=== PATIENT | male | born 1990 | race African-American/Black ===

== ENCOUNTER 2022-01-09 17:14 | Emergency (ER) | payer OTHER, BC, SELFPAY ==
[2022-01-09 17:15] VITALS: BP 132/81; PULSE 95; RESP 14; TEMP 36.2; O2SAT 99; BMI 26.6
--- NOTE | 2022-01-09 17:47 | EX.ED.GENINJ ---
HPI History of Present Illness Chief Complaint: Other, Pain/Inj Detail of Chief Complaint: Worker's Comp. injury where he injured his right shoulder and right ankle. Informant: patient Onset/Context/Timing Onset: Today and Hours Mechanism/Context: Blunt Injury Location of pain/injuries: Right shoulder and Right ankle Current Severity: Mild Maximum Severity: Mild Associated Symptoms Associated Symptoms: Negative for Parasthesias, Weakness, Loss of function, Inability to ambulate, Loss of consciousness or Amnesia Narrative Narrative: 31-year-old male was working today they were bringing up was called a [employer] and they were taking it apart the 1 side cave then hit him on his right shoulder right ankle. He was not knocked out. He had a hard hat on. He was taken to a local urgent care he is unsure of the name of it and x-rays performed which were negative. He came in here to be reevaluated and wanted an MRI. He denies any chest or abdominal pain. He had no LOC. He states the workers comp first report of injury form was filled out at the urgent care. Prior similar symptoms: No Recent Illness/Hospitalization: No PFSH PFS Medical History Abrasion, right ankle, initial encounter Contusion of right ankle Contusion of right foot Contusion of right hip Contusion of right shoulder Right ankle injury Home Medications ibuprofen 200 mg capsule 200 mg PO Q6H PRN Pain 01/09/22 [History Last Taken Unknown] Allergy/AdvReac Type Severity Reaction Status Date / Time No Known Allergies Allergy Verified 01/09/22 17:21 Social History Smoking Status: Current every day smoker tobacco type: cigarettes ROS ROS ED ROS Narrative Denies recent illness. Review of Systems ROS Unobtainable: Denies due to encephalopathy Constitutional Constitutional ED: Denies fever(s) Eyes Eyes: Denies blurry vision ENT ENT ED: Denies ear pain Cardiovascular Cardiovascular: Denies chest pain Respiratory/Chest Respiratory/Chest: Denies cough Gastrointestinal Gastrointestinal: Denies abdominal pain Genitourinary Genitourinary ED: Denies dysuria Musculoskeletal Musculoskeletal: Denies arthralgias Integumentary Denies abscess Neurologic Neurologic: Denies headache(s) Psychiatric Psychiatric: Denies anxiety Endocrine Endocrinology: Denies cold intolerance Hematologic/Lymphatic Hematologic/Lymphatic: Denies easy bleeding Allergic/Immunologic Allergic/Immunologic ED: Denies mouth swelling or tongue swelling EXAM Physical Exam Narrative Exam Narrative: Well-appearing 28-year-old male. Vital signs stable afebrile. H EENT exam normal. Atraumatic. Nontender. Pupils are reactive to light. Full range of motion of his neck. Trachea midline. No lymphadenopathy. No signs of trauma. C-spine, T-spine LS-spine and back are all nontender. No signs of trauma. Lungs clear to auscultation. Heart regular rhythm rate about 90 no murmur. Chest wall nontender. Abdomen soft nontender. Pelvic girdle intact. Moving all 4 extremities. He has full range of motion of both shoulders, elbows wrists and hands with normal repair service dispatcher strength. Full range of motion of both hips knees and ankles. Right ankle is mildly swelling lateral malleolus with no abrasion. Dorsi plantarflexion intact. Achilles tendon intact. Normal touch sensation and pulses. Neurologically is awake and alert. GCS of 15. Const Vital Signs: 01/09/22 17:15 Temperature 97.2 F L Temperature Source Temporal Pulse Rate 95 Respiratory Rate 14 Blood Pressure 132/81 H Blood Pressure Mean 98 Pulse Ox 99 Oxygen Delivery Method Room Air Positive well nourished and well developed; Negative for obese, cachectic, contractures or unkempt General Appearance ED: well developed and NAD; Negative for unkempt, cachectic or contractures Nutritional Appearance: Negative for cachectic or obese HEENT atraumatic; Negative for trauma or tenderness Eyes PERRL and EOMs intact bilaterally Neck full ROM General: Negative for tenderness Chest Wall inspection of chest normal and palpation of chest normal Resp normal respiratory effort and clear to auscultation bilaterally Effort and Inspection: Negative for pain with movement Auscultation: Negative for rales, rhonchi or wheezes Cardio regular rhythm, S1 normal heart sound, S2 normal heart sound and no murmurs Jugular Venous Distention: Negative for other Palpation: Negative for palpable S3 Rate: Negative for regular rate Rhythm: Negative for abnormal rhythm GI normal to inspection, nondistended, normoactive bowel sounds, non-tender, non-distended and no masses Auscultation: normoactive bowel sounds Palpation: soft; Negative for tender or guarding Back/Spine normal to inspection and no thoracic nor lumbar tenderness General Back: Negative for CVA tenderness Thoracic Spine / Upper Back: Negative for thoracic spinal tenderness Extremity normal to inspection and full ROM Extremity Narrative: Except right lateral malleolus abrasion mild swelling. Full flexion-extension. No bony deformity. Achilles tendon intact. General Extremety ED: Yes tenderness; Negative for deformity General Extremity: Negative for deformity Neuro oriented x3, CN's II-XII intact bilaterally, moves all extremities and no focal motor deficits Arsen Coma Scale: document GCS findings Spontaneous Obeys Commands Oriented 15 Sensorium / Orientation: alert, oriented to person, oriented to place and oriented to time; Negative for orientation impaired, lethargic or stuporous Motor Exam: strength 5/5 throughout Psych Appearance: Negative for unkempt Skin no rashes or lesions noted and no wounds Skin Narrative: Mild abrasion right lateral malleolus. General Skin Exam: Negative for other Rashes: No rashes noted Trauma: abrasion Wounds: Negative for wounds noted MDM MDM MDM Narrative Medical decision making narrative: 31-year-old with a Worker's Comp. injury earlier today where he had a right shoulder contusion and a right ankle contusion. He had x-rays done in urgent care that were reportedly negative. I looked them up there Our system so I am unable to view them. I explained the patient he does not need an MRI today. Ice to the areas. Motrin and Tylenol for pain. And follow-up. Per patient request I did repeat the right ankle x-ray. No acute process. Old avulsion medially. Radiography Diagnostic Testing: Right ankle x-ray, 3 views, interpreted by myself shows lateral malleolus soft tissue swelling. No acute fracture. Old avulsion fracture of the medial malleolus. That is not new and not an acute injury today. Discussed films with the patient. Discharge Plan Triage Chief Complaint: Other, Pain/Inj ED Provider: Hosea Floyd Dx/Rx/DC Orders Clinical Impression: Contusion of right ankle, Contusion of right shoulder, Encounter related to worker's compensation claim Instructions: ED Chronic Pain, ED Contusion, Upper Extremity Prescriptions: No Action ibuprofen 200 mg capsule 200 mg PO Q6H PRN (Reason: Pain) Referrals: [facility] [Group of Physicians] - As soon as possible Activity Restrictions/Additional Instructions: Ice to your shoulder and your ankle. Elevate the ankle to decrease pain and swelling. They both should progressively improve does not you need follow up. Motrin for pain and swelling. Tylenol for pain. Disposition Disposition: Home, Self Care
--- NOTE | 2022-01-09 18:00 | RAD_ITS ---
STUDY: X-RAY - RIGHT ANKLE REASON FOR EXAM: Male, 31 years old. Injury. TECHNIQUE: 3 view(s) of the ankle. COMPARISON: None. FINDINGS: Normal visualized distal tibia and fibula. Normal medial and lateral malleoli. There is an accessory ossicle at the tip of the medial malleolus. Normal tibiotalar articulation and ankle mortise. Normal visualized talus and calcaneus. Arthrosis of the visualized subtalar, talonavicular, calcaneocuboid and tarsal articulations. The soft tissue structures are unremarkable. RAD/Ankle min 3 Views IMPRESSION: No acute fracture or dislocation. Electronically Signed: Keith Majano DO at 18:32 EST ,
--- NOTE | 2022-01-09 18:30 | ED.RN ---
PT STATES HE FILLED OUT WORKERS COMP PAPERWORK AT [employer] [facility] TODAY. REGISTRATION AWARE.
[2022-01-09 18:37] VITALS: RESP 18
== END 2022-01-09 18:38 | disposition home or self-care (01) ==
PROVIDERS: Emergency Provider Emergency Medicine; Visit Provider Emergency Medicine
DX: S40.011A Contusion of right shoulder, initial encounter (principal); S90.01XA Contusion of right ankle, initial encounter; F17.210 Nicotine dependence, cigarettes, uncomplicated; E66.9 Obesity, unspecified; X58.XXXA Exposure to other specified factors, initial encounter; Y99.0 Civilian activity done for income or pay
CPT/HCPCS: 73610; 99283